=== PATIENT | female | born 1980 | race Caucasian/White ===

== ENCOUNTER 2020-10-22 07:36 | Outpatient (CLI) | payer OTHER, SELFPAY ==
--- NOTE | ~2020-10-22 | US_ITS ---
EXAMINATION: US abdomen limited DATE: 10/22/2020 08:17 INDICATION: Epigastric abdominal pain TECHNIQUE: Multiple grayscale and Doppler ultrasound images of the abdomen were obtained. COMPARISON: None available FINDINGS: The head, body, and tail of the pancreas are normal. The liver is normal with normal echoge nicity and echotexture. No surface nodularity. Normal hepatopetal flow in the main portal vein. The g allbladder is normal with no abnormal wall thickening, pericholecystic fluid or stones. The normal co mmon bile duct measures 3 mm. There was no sonographic Del Rosario sign. IMPRESSION: 1. Normal sonographic study of the gallbladder. Reviewed, dictated and finalized at location A. JOINER
== END 2020-10-22 07:37 | disposition home or self-care (01) ==
PROVIDERS: PCP Family Medicine; Visit Provider Physician Assistant Medical
DX: R10.11 Right upper quadrant pain (principal)
CPT/HCPCS: 76705

== ENCOUNTER → 2021-06-01 16:56 | Outpatient (CLI) | payer OTHER, SELFPAY ==
--- NOTE | ~2021-06-01 | MM_ITS ---
EXAMINATION: MM screening calvin BI w torri HISTORY: Screening mammogram TECHNIQUE: Craniocaudal and mediolateral oblique 3-D tomosynthesis images were obtained and synthetic 2-D images were generated. CAD analysis was submitted and interpreted. COMPARISON: No prior mammogram is available for comparison at this institution. BREAST PARENCHYMAL COMPOSITION: There are scattered areas of fibroglandular density. FINDINGS: 5 x 8.5 mm lobular mass or 2 contiguous masses in the posterior lower inner right breast (M LO Tomosynthesis image 40/74; CC Tomosynthesis image 34/70. Questionable 3.5 mm mass in the posterior lower outer left breast (MLO Tomosynthesis image 24/72; CC Tomosynthesis image 21/70 Bilateral diagnostic mammography and bilateral breast ultrasound examination are recommended.). IMPRESSION: 1. Possible bilateral breast masses 2. Bilateral diagnostic mammogram and bilateral breast ultrasound examination are recommended BI-RADS Category 0: Incomplete: Needs additional imaging evaluation. Reviewed, dictated and finalized at location A. IMPRESSION: 1. Possible bilateral breast masses 2. Bilateral diagnostic mammogram and bilateral breast ultrasound examination a re recommended BI-RADS Category 0: Incomplete: Needs additional imaging evaluation.
== END ==
PROVIDERS: Visit Provider Obstetrics & Gynecology
DX: Z12.31 Encounter for screening mammogram for malignant neoplasm of breast (principal); R92.8 Other abnormal and inconclusive findings on diagnostic imaging of breast
CPT/HCPCS: 77063; 77067

== ENCOUNTER → 2021-07-15 14:11 | Outpatient (CLI) | payer OTHER, SELFPAY ==
--- NOTE | ~2021-07-15 | MMUS_ITS ---
EXAMINATION: MM diagnostic calvin BI w torri, US breast BI complete HISTORY: Possible bilateral breast masses reported on 06/01/2021 bilateral screening mammogram examin ation TECHNIQUE: Additional 3-D tomosynthesis images of both breasts were performed and synthetic 2-D image s were generated. CAD analysis was submitted and interpreted. High resolution bilateral complete oma st ultrasound including all 4 quadrants and subareolar areas was performed. COMPARISON: 06/01/2021 bilateral screening mammogram FINDINGS: MAMMOGRAPHIC FINDINGS: No suspicious mass, architectural distortion, malignant calcification, skin thickening or retraction of either breast is evident. ULTRASOUND: Right breast: 12:00 4 cm from nipple: Parallel circumscribed 2.4 x 5.5 mm hypoechoic lesion without posterior shado wing 9:00 4 cm from nipple: 2.8 x 3.5 x 4 mm parallel circumscribed hypoechoic lesion without posterior sh adowing Subareolar: 3 x 3.8 mm circumscribed hypoechoic lesion without posterior shadowing Left breast: 3:00 subareolar area: 3.4 x 4 mm probable cyst 3:00 3 cm from nipple: 2.9 x 3.4 mm circumscribed hypoechoic area without posterior shadowing IMPRESSION: 1. Probable bilateral benign findings 2. 6 month bilateral breast ultrasound follow-up is recommended. BI-RADS category 3, probably benign findings. Reviewed, dictated and finalized at location A. APEUTIC CONSULTANT IMPRESSION: 1. Probable bilateral benign findings 2. 6 month bilateral breast ultrasound follow-up is recommended. BI-RADS category 3, probably benign findings.
== END ==
PROVIDERS: Visit Provider Obstetrics & Gynecology
DX: R92.8 Other abnormal and inconclusive findings on diagnostic imaging of breast (principal)
CPT/HCPCS: 76641; 77062; 77066; G0279

== ENCOUNTER 2021-12-11 12:13 | Emergency (ER) | payer OTHER, SELFPAY ==
[2021-12-11 12:18] VITALS: BP 123/71; PULSE 90; RESP 16; TEMP 36.6; O2SAT 98
--- NOTE | 2021-12-11 12:20 | ED.URI ---
HPI - URI/Sore Throat General Chief Complaint: Upper Respiratory Infection Stated Complaint: congestion cough sinus pressure Time Seen by Provider: 12/11/21 12:20 Source: patient and RN notes reviewed History of Present Illness HPI Narrative: Patient is a 41-year-old female who presents the urgent care with complaints of cough, congestion, sinus pressure. Patient states that it started on Sunday and has not improved. Patient states that on the she called her doctor and was put on amoxicillin 875 and a prednisone taper. Patient states she has been taking the medications and still has several days left. Patient states the last 2 days has been worse. Patient does have a history of pneumonia. No other acute complaints. Denies of any fever, chills, nausea or vomiting. No distress noted. Patient aware of the plan of care. Some parts of this dictation were generated by voice recognition software and may contain typographical and/or grammatical inaccuracies. Related Data Allergies Allergy/AdvReac Type Severity Reaction Status Date / Time No Known Allergies Allergy Verified 12/11/21 12:34 Review of Systems Review of Systems: CONSTITUTIONAL: Denies fever, chills, or sweats. EYES: Denies visual changes, redness, or discharge. ENT: Reports of sinus pressure/congestion CARDIOVASCULAR: Denies chest pain, palpitations, or edema. RESPIRATORY: Reports of cough without dyspnea GASTROINTESTINAL: Denies abdominal pain, nausea, vomiting, or diarrhea. GENITOURINARY: Denies dysuria or hematuria. SKIN: Denies rash or itching. MUSCULOSKELETAL: Denies back pain, joint pain, or myalgia. NEUROLOGIC: Denies headache, numbness, or weakness. All other systems reviewed are negative, except as documented in HPI. PMFSH Family History Family History Grandparent Hypertension Social History Social History Smoking status: Never smoker Alcohol intake: never Comments At the time of my signature, I reviewed and agree with the nursing past medical, surgical, social, and family history. There is no relevant family history pertinent to the patient complaint. Exam Narrative: GENERAL: This is a well-nourished, well-developed patient, in no apparent distress. HEAD: normocephalic, atraumatic. EYES: PERRL. Sclera clear/white. Vision is grossly intact. EARS: External ears normal, auditory canals clear and without drainage, TMs normal without perforation. Hearing grossly intact. NOSE: External nose normal with no obvious nasal discharge, nares without redness, no rhinorrhea. THROAT: Mucous membranes moist, posterior pharynx clear. Moderate postnasal drainage NECK: Neck supple CARDIOVASCULAR: Regular rate and rhythm without murmurs, gallops, or rubs. RESPIRATORY: Clear to auscultation. Breath sounds equal bilaterally. No wheezes, rales, or rhonchi. SKIN: warm, intact with no suspicious lesions or rash, good texture and turgor. NEURO: awake, alert, and oriented to person, place and time. There were no obvious focal neurologic abnormalities. EXTREMITIES: No clubbing, cyanosis, or edema. Course Course Level of Care: Express Care Visit Vital Signs Vital signs: Vital Signs Temperature 98 F 12/11/21 12:18 Pulse Rate 90 12/11/21 12:18 Respiratory Rate 16 12/11/21 12:18 Blood Pressure 123/71 12/11/21 12:18 Pulse Oximetry 98 12/11/21 12:18 Temperature 98 F 12/11/21 12:18 Pulse Rate 90 12/11/21 12:18 Respiratory Rate 16 12/11/21 12:18 Blood Pressure 123/71 12/11/21 12:18 Pulse Oximetry 98 12/11/21 12:18 At the time of my signature, I reviewed and agree with the nursing past medical, surgical, social, and family history. There is no relevant family history pertinent to the patient complaint. MDM - URI/Sore Throat MDM Narrative Medical decision making narrative: Reviewed lab results with the patient. She is
== END 2021-12-11 13:02 | disposition home or self-care (01) ==
PROVIDERS: Emergency Provider Nurse Practitioner Family; PCP Family Medicine
DX: J40 Bronchitis, not specified as acute or chronic (principal); J06.9 Acute upper respiratory infection, unspecified
CPT/HCPCS: 87804; 99213; G0463

== ENCOUNTER → 2022-01-17 14:03 | Outpatient (CLI) | payer OTHER, SELFPAY ==
--- NOTE | ~2022-01-17 | US_ITS ---
EXAMINATION: US breast BI limited HISTORY: Six month follow-up for probably benign bilateral breast masses TECHNIQUE: Limited bilateral breast ultrasound is performed. FINDINGS: Right breast: There is a stable 6 mm x 3 mm oval, circumscribed, parallel, hypoechoic mass at the 12: 00 location 4 cm from the nipple. There is a stable 4 mm x 2 mm mass with similar sonographic feature s at the 9:00 location 4 cm from the nipple. Also seen is a stable 3 mm mass at the 1:00 location paul r the nipple with similar sonographic features. Left breast: There is a stable 2 mm round, circumscribed, hypoechoic mass at the 3:00 location 3 cm f rom the nipple. There is a stable 5 mm x 4 mm oval, circumscribed, parallel, hypoechoic mass with no posterior features or internal vascularity at the 12:00 location near the nipple. There is a 4 mm x 3 mm oval, circumscribed, hypoechoic mass with thin peripheral septation at the 3:00 location near the nipple. IMPRESSION: Probably benign bilateral breast masses. Follow-up bilateral chart breast ultrasound in six months is recommended. BI-RADS category 3, probably benign findings. Reviewed, dictated and finalized at location A. IMPRESSION: Probably benign bilateral breast masses. Follow-up bilateral chart breast ultra sound in six months is recommended. BI-RADS category 3, probably benign findings.
== END ==
PROVIDERS: PCP Family Medicine; Visit Provider Obstetrics & Gynecology
DX: R92.8 Other abnormal and inconclusive findings on diagnostic imaging of breast (principal)
CPT/HCPCS: 76642

== ENCOUNTER → 2022-08-31 09:12 | Outpatient (CLI) | payer OTHER, SELFPAY ==
--- NOTE | ~2022-08-31 | MM_ITS ---
Corrected Report Order # associated 09/01/2022 SLJ This report was recreated on 09/01/2022. Original report was signed by Jaya Burk M.D. on 09/01/2022 8:39 ACADEMY EDUCATION DIRECTOR. EXAMINATION: MM diagnostic calvin BI w torri; US breast BI limited HISTORY: Six-month follow-up for probably benign bilateral breast masses. TECHNIQUE: Craniocaudal, mediolateral, and mediolateral oblique 3-D tomosynthesis images of the breasts were performed and synthetic 2-D images were generated. CAD analysis was submitted and interpreted. High resolution limited bilateral breast ultrasound was performed. COMPARISON: 01/17/2022, 07/15/2021, 06/01/2021 BREAST PARENCHYMAL COMPOSITION: There are scattered areas of fibroglandular density. FINDINGS: MAMMOGRAPHIC FINDINGS: There is a stable 8 mm oval, circumscribed, equal density mass in the posterior third of the inner right breast at the 3:00 location 8 cm from the nipple. No suspicious mass, calcification, or architectural distortion are identified in the left breast. ULTRASOUND: Right breast: A 7 mm x 3 mm oval, circumscribed, parallel, hypoechoic mass with posterior acoustic enhancement and no internal vascularity at the 9:00 location 4 cm from the nipple in the right breast demonstrates slight interval increase in size but otherwise no suspicious sonographic change. There is a stable 6 mm oval, circumscribed, parallel, hypoechoic mass with no posterior features or internal vascularity at the 12:00 location 5 cm from the nipple. There is a stable 4 mm masses similar sonographic features at the 1:00 location 2 cm from the nipple in the right breast. Left breast: There is a stable 5 mm x 4 mm oval, circumscribed, parallel, hypoechoic mass with no posterior features or internal vascularity at the 12:00 location near the nipple. A stable 2 mm round mass with otherwise similar sonographic features is seen at the 3:00 location 3 cm from the nipple. There is a 2 mm cyst at the 3:00 location the nipple. IMPRESSION: 1. Probably benign bilateral breast masses. 2. Recommend 6 month follow-up targeted bilateral breast ultrasound is recommended. BI-RADS category 3, probably benign findings. Reviewed, dictated and finalized at location A. EMY EDUCATION DIRECTOR MTDD IMPRESSION: 1. Probably benign bilateral breast masses. 2. Recommend 6 month follow-up targeted bilateral breast ultrasound is recommen ded. BI-RADS category 3, probably benign findings.
== END ==
PROVIDERS: PCP Family Medicine; Visit Provider Obstetrics & Gynecology
DX: R92.8 Other abnormal and inconclusive findings on diagnostic imaging of breast (principal)
CPT/HCPCS: 76642; 77062; 77066; G0279

== ENCOUNTER → 2023-02-06 15:42 | Outpatient (CLI) | payer OTHER, SELFPAY ==
--- NOTE | ~2023-02-06 | US_ITS ---
EXAMINATION: US breast BI limited HISTORY: Six-month follow-up of probably benign bilateral breast masses TECHNIQUE: High-resolution Limited ultrasound imaging of both breasts with comparison to 08/31/2022 COMPARISON: 08/31/2022 bilateral Limited ultrasound 09/01/2022ilateral diagnostic mammogram FINDINGS: Right breast: 12:00 5.5 cm from nipple: 3.9 x 3.6 x 1.8 mm parallel circumscribed hypoechoic lesion without interna l vascularity or posterior shadowing, benign in appearance 1:00 2 cm from nipple: 4.7 x 2.5 x 3.2 mm circumscribed sonolucency without internal vascularity, soni ign in appearance 9:00 4 cm from nipple: Parallel circumscribed sonolucency measuring 3 x 4 x 4.1 mm consistent with be nign cyst Left breast: 12:00 subareolar: 3.5 x 5.4 x 4.9 mm sonolucency with through transmission posterior enhancement, wit hout internal vascularity, consistent with cyst 3:00 3 cm from nipple: 2 x 2.3 mm rounded circumscribed hypoechoic area without internal vascularity or posterior shadowing 3:00 subareolar area: Irregular antiparallel hypoechoic approximately 3.5 x 3.8 mm mass; the irregula r margins and antiparallel orientation are suspicious. Ultrasound-guided biopsy is recommended. Left breast subareolar area: Irregular circumscribed complex lesion measuring 9 x 5.6 x 4.3 mm. Ultra sound-guided biopsy is recommended due to the irregular margins. IMPRESSION: 1. Left breast 3:00 subareolar irregular antiparallel hypoechoic 3.5 x 3.8 mm mass; ultrasound-guided biopsy is recommended 2. Left breast subareolar irregular complex 9 x 5.6 x 4.3 mm mass; ultrasound-guided biopsy is recomm ended BI-RADS category 4, suspicious findings. Reviewed, dictated and finalized at location A. IMPRESSION: 1. Left breast 3:00 subareolar irregular antiparallel hypoechoic 3.5 x 3.8 mm m ass; ultrasound-guided biopsy is recommended 2. Left breast subareolar irregular complex 9 x 5.6 x 4.3 mm mass; ultrasound-g uided biopsy is recommended BI-RADS category 4, suspicious findings.
== END ==
PROVIDERS: PCP Obstetrics & Gynecology; Visit Provider Obstetrics & Gynecology
DX: R92.8 Other abnormal and inconclusive findings on diagnostic imaging of breast (principal)
CPT/HCPCS: 76642

== ENCOUNTER → 2023-08-20 09:17 | Outpatient (CLI) | payer OTHER, SELFPAY ==
--- NOTE | ~2023-08-20 | MMUS_ITS ---
EXAMINATION: MM diagnostic calvin BI w torri, US breast BI limited HISTORY: Patient presents for six-month follow-up after canceled biopsy recommendation TECHNIQUE: Craniocaudal, mediolateral, and mediolateral oblique 3-D tomosynthesis images of the breas ts were performed and synthetic 2-D images were generated. CAD analysis was submitted and interpreted . High resolution limited bilateral breast ultrasound was performed. COMPARISON: 02/06/2023, 08/31/2022, 01/17/2022, 07/15/2021, 06/01/2020 BREAST PARENCHYMAL COMPOSITION: There are scattered areas of fibroglandular density. FINDINGS: MAMMOGRAPHIC FINDINGS: Right breast: There is a stable 8 mm oval, circumscribed, equal density mass in the posterior third o f the inner breast at the 3:00 location, 8 cm from the nipple. No suspicious calcification or archite ctural distortion are identified. Left breast: No suspicious mass, calcification, or architectural distortion are identified. ULTRASOUND: Right breast: There is a stable 4 mm cyst at the 1:00 location, 2 cm from the nipple. There is a stab le 4 mm cyst at the 9:00 location, 4 cm from the nipple.. Left breast: A 2 mm round hypoechoic mass with no posterior features or internal vascularity at the 3 :00 location, 3 cm from the nipple has decreased in size. The previously described complex cystic and solid mass of the left breast near the nipple is no longer identified. There is stable 5 mm cyst at the 12:00 location near the nipple. IMPRESSION: 1. No mammographic or sonographic evidence of malignancy. 2. Recommend routine screening mammography in one year. BI-RADS Category 2: Benign finding(s). Reviewed, dictated and finalized at location A. EMIC ADVISEMENT DIRECTOR IMPRESSION: 1. No mammographic or sonographic evidence of malignancy. 2. Recommend routine screening mammography in one year. BI-RADS Category 2: Benign finding(s).
== END ==
PROVIDERS: PCP Surgery; Visit Provider Surgery
DX: R92.8 Other abnormal and inconclusive findings on diagnostic imaging of breast (principal)
CPT/HCPCS: 76642; 77062; 77066; G0279

== ENCOUNTER 2024-10-15 15:26 | Outpatient (CLI) | payer OTHER, SELFPAY ==
--- NOTE | ~2024-10-15 | MM_ITS ---
EXAMINATION: MM screening calvin BI w torri HISTORY: Screening mammogram, family history of breast cancer in her mother. TECHNIQUE: Craniocaudal and mediolateral oblique 3-D tomosynthesis images were obtained and synthetic 2-D images were generated. CAD analysis was submitted and interpreted. COMPARISON: 08/20/2023, 08/31/2022, 06/01/2021 BREAST PARENCHYMAL COMPOSITION:Not Dense. There are scattered areas of fibroglandular density. FINDINGS: No suspicious mass, calcification, or architectural distortion are identified in either kannan ast to suggest malignancy. There has been no suspicious interval change. IMPRESSION: No mammographic evidence of malignancy. Recommend routine screening mammography in one year. BI-RADS Category 1: Negative Reviewed, dictated and finalized at location . OPERATIONS LEAD
== END 2024-10-15 15:27 | disposition home or self-care (01) ==
LOC: MICIMG 15:27
PROVIDERS: PCP Family Medicine; Visit Provider Obstetrics & Gynecology
DX: Z12.31 Encounter for screening mammogram for malignant neoplasm of breast (principal); Z80.3 Family history of malignant neoplasm of breast
CPT/HCPCS: 77063; 77067

== ENCOUNTER 2024-11-24 16:52 | Emergency (ER) | payer OTHER, SELFPAY ==
[2024-11-24 16:58] VITALS: BP 134/82; PULSE 103; RESP 16; TEMP 36.9; O2SAT 96
[2024-11-24 17:22] LABS: EDCOVIDSCREEN Negative (Negative); EDINFLUASCREEN Negative (Negative); EDINFLUBSCREEN Negative (Negative)
--- NOTE | 2024-11-24 17:33 | ED_ITS ---
HPI - URI/Sore Throat General Chief Complaint: Upper Respiratory Infection Stated Complaint: Congestion/Chest Congestion/Cough Time Seen by Provider: 11/24/24 17:34 Source: patient Mode of arrival: ambulatory Limitations: no limitations History of Present Illness HPI Narrative: 44-year-old female presents with complaint of nasal congestion, sinus pressure, postnasal drainage for the past 10 days. Coughing for 1 week. Right ear pressure for the past 1-2 days. No chest pain or shortness of breath. Patient taking [id number] pseudoephedrine, Mucinex, Flonase. All systems reviewed and negative except as noted above. Related Data Home Medications ?Medication ?Instructions ?Recorded ?Confirmed ?Last Taken ?Type sertraline 50 mg tablet mg 11/24/24 Unknown History terbinafine HCl 250 mg tablet mg 11/24/24 Unknown History Allergies Allergy/AdvReac Type Severity Reaction Status Date / Time No Known Allergies Allergy Verified 11/24/24 17:05 Review of Systems Review of Systems: CONSTITUTIONAL: Denies fever, chills, or sweats. Reports fatigue. EYES: Denies visual changes, redness, or discharge. ENT: Reports rhinorrhea, congestion, sinus pressure. Denies sore throat. Reports right ear pressure. CARDIOVASCULAR: Denies chest pain, palpitations, or edema. RESPIRATORY: Reports cough. Denies dyspnea. GASTROINTESTINAL: Denies abdominal pain, nausea, vomiting, or diarrhea. GENITOURINARY: Denies dysuria or hematuria. SKIN: Denies rash or itching. MUSCULOSKELETAL: Denies back pain, joint pain, or myalgia. NEUROLOGIC: Denies headache, numbness, or weakness. PSYCHIATRIC: Denies anxiety or depression. All other systems reviewed are negative, except as documented in HPI. [facility] Family History Family History (Updated 03/14/24 @ 13:10 by Alethea Garnica MA) Grandparent Hypertension Mother Breast cancer Social History Social History (Updated 05/22/23 @ 13:14 by Lianna Appiah CMA) Smoking status: Former smoker Alcohol intake: never Substance use: never Substance use type: does not use Lack of Transportation: No Lack of Food: Never True Current Housing: I Have Housing Concerned About Future Housing: No Difficulty Paying Gas/Electric Bills: No Difficulty Paying for Meds: No Currently Unemployed: No Education: Trade/Vocational Certificate Difficulty w/ Childcare or Family Care: No Comments At time of signature, agree with nursing past medical, surgical, social and family history. There is no relevant family history pertinent to the presenting complaint. Exam Narrative: GENERAL: This is a well-nourished, well-developed patient, in no apparent distress. HEAD: normocephalic, atraumatic. EYES: PERRL. Sclera clear/white. Vision is grossly intact. EARS: External ears normal, auditory canals clear and without drainage, Yellow fluid to right TM with erythema and bulging. Left TM is normal. without perforation Bilaterally. Hearing grossly intact. NOSE: External nose normal with purulent nasal drainage, erythema and swelling to bilateral nares. Maxillary sinus tenderness bilaterally on palpation. THROAT: Mucous membranes moist, postnasal drainage. NECK: Neck supple, non-tender without lymphadenopathy, masses or thyromegaly. CARDIOVASCULAR: Regular rate and rhythm without murmurs, gallops, or rubs. RESPIRATORY: Clear to auscultation. Breath sounds equal bilaterally. No wheezes, rales, or rhonchi. SKIN: warm, Dry, intact with no suspicious lesions or rash, good texture and turgor. NEURO: awake, alert, and oriented to person, place and time. There were no obvious focal neurologic abnormalities. EXTREMITIES: No joint tenderness, effusion, or edema noted. Course Course Level of Care: Express Care Visit Vital Signs Vital signs: Vital Signs Temperature 36.9 C 11/24/24 16:58 Pulse Rate 103 H 11/24/24 16:58 Respiratory Rate 16 11/24/24 16:58 Blood Pressure 134/82 11/24/24 16:58 Pulse Oximetry 96 11/24/24 16:58 Oxygen Delivery Room Air 11/24/24 16:58 Temperature 36.9 C 11/24/24 16:58 Pulse Rate 103 H 11/24/24 16:58 Respiratory Rate 16 11/24/24 16:58 Blood Pressure 134/82 11/24/24 16:58 Pulse Oximetry 96 11/24/24 16:58 Oxygen Delivery Room Air 11/24/24 16:58 Reviewed MDM - URI/Sore Throat MDM Narrative Medical decision making narrative: will treat patient with antibiotic for bacterial sinusitis due to duration of symptoms and exam findings. Patient is alert, nontoxic. He is with plan of care. Recommend she stop taking pseudoephedrine due to taking for 7 days. Please be advised this is a medical document. It is intended for [id number] communication. It is written in medical language and may contain unfamiliar abbreviations or verbiage. Medical documents are intended to carry relevant information, facts as evident, and the clinical opinion of the practitioner at the time of the encounter. This report may have been done utilizing a voice recognition system. Attempts have been made to correct errors. However, there may be uncorrected grammatical, spelling, and recognition errors present. The file time of this note does not necessarily represent the time of service. Lab Data Labs: Lab Results 11/24/24 Range/Units 17:02 POC Influenza A Ag Negative (Negative) POC Influenza B Ag Negative (Negative) POC SARS CoV-2 Ag Negative (Negative) Discharge Plan Discharge Clinical Impression: Acute bacterial sinusitis, Acute serous otitis media of right ear Patient Disposition: Home Condition: Stable Instructions: Antibiotic Form, Fluid In The Ear (Serous Otitis Media) (ED) Additional Instructions: take medications as prescribed. Continue taking [id number] Mucinex and Flonase as directed on packaging. Purchase an rcmq-clx-izdbhky antihistamine such as Claritin or Zyrtec and take as directed on packaging. Drink at least 64 oz water a day. Place cool mist humidifier in bedroom where you sleep. Follow-up with your doctor if symptoms are not improving. Patient Language: Estonian Prescriptions: New benzonatate 200 mg capsule 200 mg PO TID PRN (Reason: cough) Qty: 20 0RF methylprednisolone [Medrol (Joseph)] 4 mg tablets,dose pack See Rx Instructions PO .COMPLEX Qty: 21 0RF Rx Instructions: orally per package directions amoxicillin-pot clavulanate 875-125 mg tablet 1 tablet PO Q12H 10 Days Qty: 20 0RF No Action terbinafine HCl 250 mg tablet sertraline 50 mg tablet Follow-up/Referrals: Moody Trujillo MD [Primary Care Provider] - Time of Disposition: 17:40
--- OUTSIDE RECORDS SUMMARY | 2024-11-24 17:51 | XMS_ITS | Clinical Summary ---
Author Organization [address] Address [address] [place] [address] Care Team Providers Care Conduit Bender Name Role Phone Moody Trujillo MD Primary Care Provider [phone] Semaj Vallejo MD Unavailable [phone] Allergies No known active allergies Medications No known medications Active Problems No known active problems Family History Medical History Relation Name Comments Breast cancer Mother Colon cancer Paternal Grandmother Relation Name Status Comments Mother Paternal Grandmother Social History Tobacco Use Types Packs/Day Years Used Date Smoking Tobacco: Former Cigarettes Q uit: 2006 Passive Smoke Exposure: Never Smokeless Tobacco: Never Tobacco Cessation:Counseling Given: Not Answered Comments Unknown Sex and Gender Information Value Date Recorded Sex Assigned at Not on file Legal Sex Female 9:05 AM VIBRATING SCREEN OPERATOR Gender Identity Not on file Sexual Orientation Not on file Obstetrics History Last Filed Vital Signs Vital Sign Reading Time Taken Comments Blood Pressure 124/78 08/09/2021 10:54 AM VIBRATING SCREEN OPERATOR Pulse 94 08/09/2021 10:54 AM VIBRATING SCREEN OPERATOR Temperature 36.7 C (98 F) 08/09/2021 10:54 AM VIBRATING SCREEN OPERATOR Respiratory Rate 15 08/09/2021 10:54 AM VIBRATING SCREEN OPERATOR Oxygen Saturation 99% 08/09/2021 10:54 AM VIBRATING SCREEN OPERATOR Inhaled Oxygen Concentration - - Weight 89.8 kg (198 lb) 03/06/2023 9:53 AM CDT Height 165.1 cm (5' 5 ) 03/06/2023 9:53 AM CDT Body Mass Index 32.95 03/06/2023 9:53 AM CDT Plan of Treatment Health Maintenance Due Date Last Done Comments Breast Cancer Screening-Mammogram 1981 Cervical Cancer Screening 1981 Depression Screening 1981 Hepatitis C Screening 1981 Varicella Vaccines (1 of 2 - 13+ 2-dose series) 1994 Hepatitis B Screening 1999 Regular Well Visit/Exam 18-64 1999 Covid-19 Vaccine (4 2023-2 5 season) 2024 07/22/2021, 09/18/2020, 08/21/2020 Influenza Vaccine (#1) 2024 06/21/2018 DTaP/Tdap/Td Vaccine (2 - Td or Tdap) 02/11/2028 02/10/2018 HPV Vaccines Aged Out No longer eligi ble based on patient's age to complete this topic Pneumococcal vaccine <65 Aged Out No longer eligible based on patient's age to complete this topic Insurance [facility] HMO Care Teams Conduit Bender Relationship Specialty Start Date End Date Moody Trujillo MD PCP - General Family Medicine 08/09/21 Semaj Vallejo MD [address] [address] Referring Physician Obstetrics and Gynecology 02/26/23
--- OUTSIDE RECORDS SUMMARY | 2024-11-24 17:51 | XMS_ITS | Referral Summary ---
Author Organization [address] Address [address] [place] [address] Care Team Providers Care Tree Climber Name Role Phone Moody Trujillo MD Primary Care Provider [phone] Semaj Vallejo MD Unavailable [phone] Allergies No known active allergies Medications No known medications Active Problems No known active problems Social History Tobacco Use Types Packs/Day Years Used Date Smoking Tobacco: Former Cigarettes Q uit: 2006 Passive Smoke Exposure: Never Smokeless Tobacco: Never Tobacco Cessation:Counseling Given: Not Answered Comments Unknown Sex and Gender Information Value Date Recorded Sex Assigned at Not on file Legal Sex Female 9:05 AM PIG BREEDER Gender Identity Not on file Sexual Orientation Not on file Last Filed Vital Signs Vital Sign Reading Time Taken Comments Blood Pressure 124/78 08/09/2021 10:54 AM PIG BREEDER Pulse 94 08/09/2021 10:54 AM PIG BREEDER Temperature 36.7 C (98 F) 08/09/2021 10:54 AM PIG BREEDER Respiratory Rate 15 08/09/2021 10:54 AM PIG BREEDER Oxygen Saturation 99% 08/09/2021 10:54 AM PIG BREEDER Inhaled Oxygen Concentration - - Weight 89.8 kg (198 lb) 03/06/2023 9:53 AM CDT Height 165.1 cm (5' 5 ) 03/06/2023 9:53 AM CDT Body Mass Index 32.95 03/06/2023 9:53 AM CDT Plan of Treatment Not on file Insurance [address] [place], [place] [address]O [facility] Care Teams Tree Climber Relationship Specialty Start Date End Date Moody Trujillo MD PCP - General Family Medicine 08/09/21 Semaj Vallejo MD [address] [address] Referring Physician Obstetrics and Gynecology 02/26/23
--- OUTSIDE RECORDS SUMMARY | 2024-11-24 17:51 | XMS_ITS | Clinical Summary ---
Author Organization [facility] Address [address] [place] [address] Care Team Providers Care Director Of Employer Services Name Role Phone Moody Trujillo MD Primary Care Provider [phone] Source Comments [facility] [employer],non-[facility] Affiliates and Associated Physician Practices is amultiple site organization consisting of ambulatory clinics and hospital sitesin [place], [place], [place] and [place]. This disclosure is being madepursuant to the Care Everywhere program and may not contain all information available regarding this patient. Last updated 18.[facility] [employer] Allergies No known active allergies Medications * Be aware that medications may not be up to date on this document. Alwaysverify current medications with the patient. No known medications Social History Tobacco Use Types Packs/Day Years Used Date Smoking Tobacco: Never Comments Unknown Sex and Gender Information Value Date Recorded Sex Assigned at Not on file Legal Sex Female 6:52 PM CDT Gender Identity Not on file Sexual Orientation Not on file Last Filed Vital Signs Vital Sign Reading Time Taken Comments Blood Pressure 110/60 10/28/2017 10:02 AM CDT Pulse 79 10/28/2017 10:02 AM CDT Temperature 37.1 C (98.7 F) 10/28/2017 10:02 AM CDT Respiratory Rate - - Oxygen Saturation - - Inhaled Oxygen Concentration - - Weight 86.2 kg (190 lb) 10/28/2017 10:02 AM CDT Height 165.1 cm (5' 5 ) 10/28/2017 10:02 AM CDT Body Mass Index 31.62 10/28/2017 10:02 AM CDT Plan of Treatment Health Maintenance Due Date Last Done Comments LIPID TESTING 1981 MAMMOGRAM 1981 PAP SMEAR 1981 HIV SCREENING 1996 HEPATITIS C SCREENING 03/14/1999 DTAP/TDAP/TD VACCINES (1 - Tdap) 2000 HEPATITIS B VACCINE (1 of 3 - 19+ 3-dose series) 2000 COVID-19 VACCINE (1 - 2023-2 5 season) 2024 DEPRESSION SCREENING 08/13/2024 INFLUENZA VACCINE (Season Ended) 2025 ZOSTER VACCINE (1 of 2) 2031 HIB VACCINE Aged Out No longer eligi ble based on patient's age to complete this topic HPV VACCINE Aged Out No longer eligi ble based on patient's age to complete this topic MENINGOCOCCAL (Group B) VACC INE SHARED DECISION-MAKING Aged Out No longer eligibl e based on patient's age to complete this topic MENINGOCOCCAL GROUPS A/C/Y/W VACCINE Aged Out No longer eligible b ased on patient's age to complete this topic PNEUMOCOCCAL VACCINE Aged Out No long er eligible based on patient's age to complete this topic Insurance [employer] Care Teams Director Of Employer Services Relationship Specialty Start Date End Date Moody Trujillo MD [address] [place] [phone] PCP - General Family Medicine 10/28/17
== END 2024-11-24 17:42 | disposition home or self-care (01) ==
PROVIDERS: Emergency Provider Nurse Practitioner Family; PCP Family Medicine
DX: J01.90 Acute sinusitis, unspecified (principal); H65.01 Acute serous otitis media, right ear; Z20.822 Contact with and (suspected) exposure to COVID-19; Z87.891 Personal history of nicotine dependence
CPT/HCPCS: 87426; 87804; 99213; G0463

== ENCOUNTER 2025-05-05 08:52 | Outpatient (CLI) | payer OTHER, SELFPAY ==
--- OUTSIDE RECORDS SUMMARY | 2025-05-05 09:22 | XMS_ITS | Clinical Summary ---
Author Organization [address] Address [address] [place] [address] Care Team Providers Care Supervisor Beam Department Name Role Phone Moody Trujillo MD Primary Care Provider [phone] Semaj Vallejo MD Unavailable [phone] Allergies No known active allergies Medications No [...] on file Legal Sex Female 9:05 AM WINCH TRUCK OPERATOR Gender Identity Not on file Sexual Orientation Not on file Obstetrics History Last Filed Vital Signs Vital Sign Reading Time Taken Comments Blood Pressure 124/78 08/09/2021 10:54 AM WINCH TRUCK OPERATOR Pulse 94 08/09/2021 10:54 AM WINCH TRUCK OPERATOR Temperature 36.7 C (98 F) 08/09/2021 10:54 AM WINCH TRUCK OPERATOR Respiratory Rate 15 08/09/2021 10:54 AM WINCH TRUCK OPERATOR Oxygen Saturation 99% 08/09/2021 10:54 AM WINCH TRUCK OPERATOR Inhaled Oxygen Concentration - - Weight 89.8 kg (198 lb) 03/06/2023 9:53 AM CDT Height 165.1 cm (5' 5) 03/06/2023 9:53 AM CDT Body Mass Index 32.95 03/06/2023 9:53 AM CDT Plan of Treatment Health Maintenance Due Date Last Done Comments Breast Cancer Screening-Mammogram 1981 Cervical Cancer Screening 1981 Depression Screening 1981 Hepatitis C Screening 1981 Varicella Vaccines (1 of 2 - 13+ 2-dose series) 1994 Hepatitis B Screening 1999 Regular Well Visit/Exam 18-64 1999 HPV Vaccines (1 - 3-dose SCD M series) 2008 Covid-19 Vaccine (4 - 2024-2 6 season) 2025 07/22/2021, 09/18/2020, 08/21/2020 Influenza Vaccine (#1) 2025 06/21/2018 DTaP/Tdap/Td Vaccine (2 - Td or Tdap) 02/11/2028 02/10/2018 Pneumococcal vaccine <65 Aged Out No longer eligible based on patient's age to complete this topic [facility] Care Teams Supervisor Beam Department Relationship Specialty Start Date End Date Moody Trujillo MD PCP - General Family Medicine 08/09/21 Semaj Vallejo MD [address] [address] Referring Physician Obstetrics and Gynecology 02/26/23
--- OUTSIDE RECORDS SUMMARY | 2025-05-05 09:22 | XMS_ITS | Clinical Summary ---
Author Organization [facility] Address [address] [facility] [place] [address] Care Team Providers Care Furniture Packer Name Role Phone Moody Trujillo MD Primary Care Provider [phone] Source Comments [facility] [employer],non-[facility] Affiliates and Associated Physician Practices is amultiple site organization consisting of ambulatory clinics and hospital sitesin [place], [place], [place] and [place]. This disclosure is being madepursuant to the Care Everywhere program and may not contain all information available regarding this patient. Last updated 18.[facility] [employer] Allergies No known active allergies Medications * [...] 10:02 AM CDT Height 165.1 cm (5' 5) 10/28/2017 10:02 AM CDT Body Mass Index 31.62 10/28/2017 10:02 AM CDT Plan of Treatment Health Maintenance Due Date Last Done Comments LIPID TESTING 1981 MAMMOGRAM 1981 HIV SCREENING 1996 HEPATITIS C SCREENING 03/14/1999 DTAP/TDAP/TD VACCINES (1 - Tdap) 2000 HEPATITIS B VACCINE (1 of 3 - 19+ 3-dose series) 2000 HPV VACCINE (1 - 3-dose SCDM series) 2008 DEPRESSION SCREENING 08/13/2024 COVID-19 VACCINE (1 - 2023-2 5 season) 2025 INFLUENZA VACCINE (#1) 2025 ZOSTER VACCINE (1 of 2) 2031 [...] complete this topic Insurance [employer] Care Teams Furniture Packer Relationship Specialty Start Date End Date Moody Trujillo MD [address] [place] [phone] PCP - General Family Medicine 10/28/17
== END 2025-05-05 08:53 | disposition home or self-care (01) ==
LOC: ANHBWCAUD 08:52
PROVIDERS: PCP Family Medicine; Visit Provider Family Medicine
DX: H90.3 Sensorineural hearing loss, bilateral (principal)
CPT/HCPCS: 92557; 92567